=== PATIENT | female | born 1965 | race Caucasian/White ===

== ENCOUNTER 2019-01-12 13:58 | Emergency (ER) | payer SELFPAY ==
[~2019-01-12] VITALS: Ht 165.1 cm; Wt 68.0 kg
[2019-01-12 14:11] VITALS: BP 158/72
--- NOTE | 2019-01-12 14:28 | NUR ---
PT FACIAL SMILE SYMMETRICAL, GRILP STRENGTH NORMAL. EYES PERRL, DENIES VISION CHANGE.
--- NOTE | 2019-01-12 14:36 | NUR ---
53 Y/O F PRESENTS TO ER C/O HEADACHE X3 WEEKS. PAIN LEVEL 8/10. PT TOOK IBUPROFEN YESTERDAY WITH MILD RELIEF. DENIES ANY CHANGES IN VISION. DENIES N/V. PT IN CHAIR D. WAITING FOR MD TO EVALUATE PT. ALLERGIES: NKA MED HX: NONE
[2019-01-12] MEDS: ACETAMINOPHEN EXTRA STRENGTH 500 MG TAB PO ONE (15:53)
[2019-01-12] MEDS: PROCHLORPERAZINE 10 MG/2 ML VIAL IM ONE (15:53)
[2019-01-12 16:31] VITALS: BP 139/86
--- NOTE | 2019-01-12 16:31 | NUR ---
Patient discharged with v/s stable. Written and verbal after care instructions given and explained. Pt encouraged to drink plenty of fluids. Patient alert, oriented and verbalized understanding of instructions. Ambulatory with steady gait. All questions addressed prior to discharge. ID band removed. Patient advised to follow up with PMD. Rx of TYLENOL 500MG WAS given. Patient educated on indication of medication including possible reaction and side effects. Opportunity to ask questions provided and answered.
== END 2019-01-12 16:31 | disposition home or self-care (01) ==
LOC: MED 13:58
DX: G44.201 Tension-type headache, unspecified, intractable (principal)
CPT/HCPCS: 96372; 99283; J0780